=== PATIENT | female | born 1970 | race Caucasian/White ===

== ENCOUNTER 2018-12-02 19:16 | Emergency (ER) | payer OTHER, SELFPAY ==
[2018-12-02 19:20] VITALS: BP 123/61; PULSE 72; RESP 17; TEMP 37.1; O2SAT 100; BMI 21.2
--- NOTE | 2018-12-02 19:41 | ED_ITS ---
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 She states she had a sudden onset of right-sided lower back pain. Has never had any symptoms like this before. No radiation. No urinary symptoms. No bowel changes. No skin changes. Related Data Previous Rx's Medication Instructions Recorded cyclobenzaprine 10 mg PO TID PRN #21 tab 12/02/18 tramadol [Ultram] 50 mg PO Q6H PRN #20 tab 12/02/18 Allergies Allergy/AdvReac Type Severity Reaction Status Date / Time No Known Drug Allergies Allergy Verified 12/02/18 19:28 Review of Systems Constitutional Denies fever(s) and Denies headache(s) ENT Ears, Nose, Mouth, and Throat: Denies vertigo and Denies headache(s) Cardiovascular Denies chest pain and Denies dyspnea Respiratory Denies dyspnea Gastrointestinal Gastrointestinal: Denies abdominal pain, Denies nausea and Denies vomiting Genitourinary Denies urinary frequency, Denies dysuria and Denies urinary urgency Musculoskeletal Reports back pain, Denies numbness and Denies tingling Integumentary/Breasts Denies rash Neurologic Denies vertigo, Denies headache(s), Denies numbness and Denies tingling Hematologic/Lymphatic Denies easy bleeding and Denies easy bruising Allergic/Immunologic Denies urticaria [facility] Medical History Healthy adult (Acute) Social History Smoking Status: Current every day smoker Social History Smoking Status: Current every day smoker Exam Initial Vital Signs Initial Vital Signs: Vital Signs Temperature 98.8 F 12/02/18 19:20 Pulse Rate 72 12/02/18 19:20 Respiratory Rate 17 12/02/18 19:20 Blood Pressure 123/61 12/02/18 19:20 Pulse Oximetry 100 12/02/18 19:20 Const General: cooperative, well developed, well groomed and No acute distress Orientation: alert, awake and oriented x3 HENMT Head: normal to inspection and normocephalic Resp Effort & Inspection: normal respiratory effort Auscultation: clear to auscultation bilaterally Cardio Rate: regular rate Rhythm: regular rhythm GI Inspection: non-distended Palpation: soft Back/Spine/Pelvis Back: No CVA tenderness Skin Lesions: no lesions Rashes: no rashes Neuro General: alert, awake and oriented x3 Cognition: normal cognition Speech: speech normal Extrem General: normal to inspection and capillary refill normal Psych Appearance: grossly normal and well kempt Course Orders Ordered: Discontinued Medications Cyclobenzaprine HCl (Flexeril) 10 mg PO NOW ONE Stop: 12/02/18 19:53 Last Admin: 12/02/18 19:55 Dose: 10 mg Vital Signs - 8 hr 12/02/18 19:20 12/02/18 20:27 Temperature 98.8 F Pulse Rate 72 72 Respiratory Rate 17 18 Blood Pressure 123/61 112/61 Pulse Oximetry 100 MDM - Back Pain/Injury MDM Narrative Medical decision making narrative: Patient has no symptoms consistent with fracture or cauda equina or metastasis. No trauma. Hold on further workup for now. Patient given return precautions and follow-up instructions. She expressed understanding and agreement with plan Discharge Plan Departure Patient Disposition: Home Clinical Impression: Strain of lumbar region Qualifiers: Encounter type: initial encounter Qualified Code(s): S39.012A - Strain of muscle, fascia and tendon of lower back, initial encounter Discharge Date/Time: 12/02/18 20:28 Interventions: ED Discharge Assessment Last Done: 12/02/18 20:27 Instructions: DI for Back Spasm Activity Restrictions/Additional Instructions: Take the medication as directed. All of these medicines can make you drowsy so no driving. Contact your primary care provider for follow-up. Return to the emergency department for any new or worsening symptoms Prescriptions: New cyclobenzaprine 10 mg tablet 10 mg PO TID PRN (Reason: muscle spasm) Qty: 21 RF: 0 tramadol [Ultram] 50 mg tablet 50 mg PO Q6H PRN (Reason: pain) Qty: 20 RF: 0 Stand Alone Forms: Work Release Note
[2018-12-02] MEDS: CYCLOBENZAPRINE 10 MG TABLET PO (19:55)
[2018-12-02 20:27] VITALS: BP 112/61; PULSE 72; RESP 18
== END 2018-12-02 20:28 | disposition home or self-care (01) ==
PROVIDERS: Emergency Provider Emergency Medicine
DX: S39.012A Strain of muscle, fascia and tendon of lower back, initial encounter (principal)
CPT/HCPCS: 99282; 99283

== ENCOUNTER → 2018-12-07 06:43 | Outpatient (CLI) | payer OTHER, SELFPAY ==
--- NOTE | 2018-12-07 06:44 | DI.MRI.S_ITS ---
PROCEDURE: MR LUMBAR SPINE WO CON INDICATIONS: Strain of muscle, fascia and tendon of lower back TECHNIQUE: Noncontrast sagittal T1 spin echo and T2 fast echo, sagittal STIR, axial T1 and T2 fast spin echo through the lumbar spine. In cases with scoliosis, additional coronal T2 fast spin echo may be performed. COMPARISON: None. FINDINGS: Image quality: Excellent. Alignment and Curvature: There is normal bony alignment. Bone Marrow: Marrow is of normal overall signal. No acute vertebral body compression fractures. Spinal Cord: Conus medullaris terminates at the L1 level. Visualized cord demonstrates normal signal and size. Paraspinous Soft Tissues: No paravertebral masses. L1-L2: Normal appearance. L2-L3: Normal appearance. L3-L4: Normal appearance. L4-L5: Loss of the signal. Mild, diffuse disc bulge. Mild bilateral facet hypertrophy. Focal high intensity zone within the posterior annulus compatible with a fissure. Mild narrowing of the central canal. Mild bilateral neural foraminal narrowing. No neural impingement. L5-S1: Loss of the signal. Mild, diffuse disc bulge. Focal high intensity zone within the posterior annulus compatible with a fissure. Mild left facet hypertrophy. No central stenosis. Mild left neural foraminal narrowing. No neural impingement. IMPRESSION: 1. Mild L4-L5 and L5-S1 degenerative disc disease. 2. Mild bilateral L4-L5 and left L5-S1 facet arthropathy. 3. L4-L5 and L5-S1 disc annulus fissures. 4. Mild L4-L5 central canal narrowing. 5. Mild bilateral L4-L5 neural foraminal narrowing. Mild left L5-S1 neural foraminal narrowing. 6. No neural impingement. Dictated by: Ayde Gunn MD, PhD on 12/07/2018 at 8:10 Approved by: Ayde Gunn MD, PhD on 12/07/2018 at 8:12
== END ==
PROVIDERS: PCP Nurse Practitioner Family; Visit Provider Nurse Practitioner Family
DX: S39.012A Strain of muscle, fascia and tendon of lower back, initial encounter (principal); M51.36 Other intervertebral disc degeneration, lumbar region; M51.37 Other intervertebral disc degeneration, lumbosacral region; M48.061 Spinal stenosis, lumbar region without neurogenic claudication; M48.07 Spinal stenosis, lumbosacral region; M47.816 Spondylosis without myelopathy or radiculopathy, lumbar region; M47.817 Spondylosis without myelopathy or radiculopathy, lumbosacral region
CPT/HCPCS: 72148

== ENCOUNTER → 2018-12-25 09:09 | Outpatient (CLI) | payer OTHER, SELFPAY ==
--- NOTE | 2018-12-25 09:10 | DI.MG.S_ITS ---
BILATERAL DIGITAL DIAGNOSTIC MAMMOGRAM 3D/2D: 12/25/2018 CLINICAL: Baseline exam. Left breast pain. No prior exams were available for comparison. The tissue of both breasts is extremely dense, which lowers the sensitivity of mammography. No discrete abnormality to explain patient's symptoms. No significant masses, calcifications, or other findings are seen in either breast. IMPRESSION: INCOMPLETE: NEEDS ADDITIONAL IMAGING EVALUATION There is no abnormality seen in the left breast to correspond with the pain in the lateral aspect, however, ultrasound is recommended for complete evaluation, and particularly given dense breast tissue. This was performed immediately following this exam. This exam was interpreted at Station ID: [id number]. NOTE: For mammograms, a report in lay terms will be sent to the patient. Approximately 15% of breast malignancies will not be visualized mammographically. In the management of a palpable breast mass, a negative mammogram must not discourage biopsy of a clinically suspicious lesion. Electronically Signed By: Malinda shields/:12/25/2018 11:51:33 ACR BI-RADS Category 0: Incomplete [id number]
--- NOTE | 2018-12-25 09:10 | DI.US.S_ITS ---
LIMITED ULTRASOUND OF LEFT BREAST: 12/25/2018 CLINICAL: Diffuse left breast pain. left lateral breast pain and redness for a few days now resolved, mainly lower outer quadrant. Comparison is made to exam dated: 12/25/2018 [facility]. Color flow and real-time ultrasound of the left breast outer aspect were performed. Elliott scale images of the real-time examination were reviewed. Dense fibrocystic tissue present in the upper outer quadrant surrounding a 0.3 cm x 0.3 cm x 0.2 cm cyst in the left breast at 1 o'clock middle depth. There are also dilated duct in the left breast at 5 o'clock in the retroareolar region. This dilated duct displays internal echoes, debris or hemorrhage. Additionally, there is an anehoic dilated duct in the left breast at 6 o'clock in the retroareolar region. IMPRESSION: PROBABLY BENIGN The dilated duct in the left breast at 5 o'clock in the retroareolar region is consistent with debris and is probably benign. Follow-up mammogram and ultrasound in 6 months is recommended. The 0.3 cm x 0.3 cm x 0.2 cm cyst in the left breast at 1 o'clock middle depth is benign. The dilated duct in the left breast at 6 o'clock in the retroareolar region is benign. A follow-up left mammogram and an ultrasound in 6 months is recommended to demonstrate stability. Findings and recommendations were conveyed to the patient at time of exam. This exam was interpreted at Station ID: [id number]. Electronically Signed By: Malinda shields/:12/25/2018 13:51:47 letter sent: Followup Recommended Ultrasound BI-RADS: 3 Probably benign
== END ==
PROVIDERS: PCP Nurse Practitioner Family; Visit Provider Nurse Practitioner Family
DX: N64.4 Mastodynia (principal); R92.8 Other abnormal and inconclusive findings on diagnostic imaging of breast; N60.42 Mammary duct ectasia of left breast
CPT/HCPCS: 76642; 77066; G0279

== ENCOUNTER 2019-04-18 16:13 | Emergency (ER) | payer OTHER, SELFPAY ==
--- NOTE | 2019-04-18 16:26 | DI.RAD.S_ITS ---
PROCEDURE: XR CHEST 1V INDICATIONS: chest pain TECHNIQUE: One view of the chest was acquired. COMPARISON: None. FINDINGS: Surgical changes and devices: None. Lungs and pleura: Lungs are clear. No pleural effusions or pneumothorax. Mediastinum: Mediastinal contours appear normal. Heart size is normal. Bones and chest wall: No suspicious bony lesions. Overlying soft tissues appear unremarkable. IMPRESSION: No acute cardiopulmonary abnormality. Dictated by: Terence Vasquez M.D. on 04/18/2019 at 15:40 Approved by: Terence Vasquez M.D. on 04/18/2019 at 15:41
[2019-04-18 16:30] VITALS: BP 133/108; PULSE 103; RESP 18; O2SAT 96
[2019-04-18 16:32] VITALS: BP 133/108; PULSE 115; RESP 21; TEMP 37.1; O2SAT 100; BMI 21.7
[2019-04-18 16:36] LABS: Add Manual Diff / Slide Review NO; Basophils Absolute Auto 0 /uL (0-100); Basophils Percent Auto 0.9 % (0-2); Eosinophils Absolute Auto 0 /uL (0-450); Eosinophils Percent Auto 0.6 % (2-4); Hematocrit 36.3 % (36-46); Hemoglobin 12.2 g/dL (12.0-16.0); Lymphocytes Absolute Auto 2800 /uL (1100-4500); Lymphocytes Percent Auto 49.4 % (25-40); Mean Corpuscular HGB Conc 33.7 % (30-36); Mean Corpuscular Hemoglobin 25.7 PG (26-34); Mean Corpuscular Volume 76.2 fL (80-100); Monocytes Absolute Auto 700 /uL (0-900); Monocytes Percent Auto 12.4 % (3-14); Neutrophils Absolute Auto 2100 /uL (1500-7000); Neutrophils Percent Auto 36.7 % (50-75); Platelet Count 215 X10^3/uL (150-400); Red Blood Cell Count 4.76 X10^6/uL (4.0-5.2); Red Cell Distribution Width 14.7 % (11.6-14.8); White Blood Cell Count 5.6 X10^3/uL (4.5-11.0)
[2019-04-18 16:47] LABS: Alanine Aminotransferase 37 IU/L (9-52); Albumin 4.2 g/dL (3.5-5.0); Albumin Globulin Ratio 1.4 (1.0-2.8); Alkaline Phosphatase 95 U/L (38-126); Aspartate Aminotransferase 35 IU/L (14-36); BUN Creatinine Ratio 28.3 (6-22); Bilirubin Total 0.4 mg/dL (0.2-1.3); Blood Urea Nitrogen 17 mg/dL (7-17); Calcium 9.6 mg/dL (8.4-10.2); Carbon Dioxide 25 mmol/L (22-32); Chloride 105 mmol/L (98-107); Creatine Kinase 37 U/L (30-135); Estimated Glomerular Filt Rate > 60.0 mL/min (>60); Glucose 112 mg/dL (70-100); HEMOLYSIS < 15 (0-50); Lipase 158 U/L (23-300); Potassium 3.4 mmol/L (3.4-5.1); Sodium 141 mmol/L (137-145); Total Protein 7.2 g/dL (6.3-8.2)
[2019-04-18 16:49] LABS: PTT Partial Thromboplastin Tim 34 SECONDS (26.4-36.2)
[2019-04-18 16:56] LABS: D Dimer < 200 ng/mL (<230)
[2019-04-18 16:58] LABS: Troponin I < 0.012 ng/mL (0.01-0.034)
[2019-04-18 17:00] VITALS: BP 134/104; PULSE 96; RESP 15; O2SAT 99
--- NOTE | 2019-04-18 17:11 | ED_ITS ---
HPI - Chest Pain General Chief Complaint: Chest Pain Stated Complaint: states chest pressure and sob Time Seen by Provider: 04/18/19 16:26 Source: patient Mode of arrival: Ambulatory Limitations: no limitations History of Present Illness HPI narrative: Patient comes emergency department complaining of chest pressure and dyspnea on exertion for the last 3 days. Patient denies any fevers or chills. she states she has had a cough for about the last 2 weeks, which is new. She denies any sputum production. She states she is a smoker. Patient denies any calf pain or lower extremity swelling currently, though she did note some left calf pain last week. This has since resolved. Patient denies any nausea vomiting. She has no history of DVT. She states she has spontaneously lost 15 lb in the last couple of months, and states that she has not changed her diet or her exercise routine. No abdominal pain. No other complaints at this time. Related Data Home Medications Medication Instructions Recorded Confirmed ibuprofen 200 mg tablet 600 mg PO BID PRN tab 12/03/18 01/29/19 Allergies Allergy/AdvReac Type Severity Reaction Status Date / Time No Known Drug Allergies Allergy Verified 01/29/19 16:26 Review of Systems Constitutional Constitutional: Denies chills, Denies fatigue, Denies fever(s), Denies frequent falls, Denies lethargy and Denies weakness Eyes Eyes: Denies change in vision, Denies eye discharge, Denies irritation and Denies loss of vision ENT Ears, Nose, Mouth, and Throat: Denies change in voice, Denies dizziness, Denies neck pain, Denies sore throat and Denies throat swelling Cardiovascular Cardiovascular: Denies chest pain, Denies irregular heart rhythm, Denies lightheadedness, Denies palpitations, Reports dyspnea and Denies orthopnea Respiratory Respiratory: Reports cough, Reports dyspnea and Denies wheezing Gastrointestinal Gastrointestinal: Denies abdominal pain, Denies change in bowel habits, Denies diarrhea, Denies nausea and Denies vomiting Genitourinary Genitourinary: Denies hematuria, Denies flank pain, Denies urinary incontinence and Denies urinary urgency Musculoskeletal Musculoskeletal: Denies back pain, Denies muscle weakness, Denies neck pain, Denies numbness and Denies tingling Integumentary/Breasts Skin/Breast: Denies pruritus, Denies erythema, Denies rash and Denies wounds Neurologic Neurologic: Denies behavioral changes, Denies confusion, Denies dizziness, Denies frequent falls, Denies loss of vision, Denies numbness, Denies tingling and Denies weakness Psychiatric Psychiatric: Denies anxiety, Denies behavioral changes, Denies confusion, Denies depression, Denies homicidal ideation and Denies suicidal ideation Endocrine Endocrine: Denies fatigue, Denies flushing and Denies palpitations Hematologic/Lymphatic Hematologic/Lymphatic: Denies easy bruising Allergic/Immunologic Allergic/Immunologic: Denies urticaria, Denies throat swelling and Denies wheezing Patient History Medical History (Updated 04/18/19 @ 18:27 by Natasha Perez MD) Chronic back pain (Chronic) Family history of discoid lupus (Chronic) Healthy adult (Acute) Social History Smoking Status: Current every day smoker Tobacco: How many years used: 20 quit status: not considering quitting second hand exposure: No alcohol intake: current (rare) substance use type: does not use Social History Smoking Status: Current every day smoker Tobacco: How many years used: 20 quit status: not considering quitting second hand exposure: No alcohol intake: current (rare) substance use type: does not use alcohol intake frequency: holidays/special occasions only Substance Use Type: does not use Exam Initial Vital Signs Initial Vital Signs: Vital Signs Pulse Rate 103 H 04/18/19 16:30 Respiratory Rate 18 04/18/19 16:30 Blood Pressure 133/108 H 04/18/19 16:30 Pulse Oximetry 96 04/18/19 16:30 Const General: cooperative and well developed Nutritional Appearance: well nourished Orientation: alert, awake, oriented x3 and not confused [facility] Head: normocephalic and atraumatic Ears: external ears normal Nose: external nose normal and No nasal discharge Face and sinus: face symmetric and No dry mucous membranes Mouth: oral mucosae normal and moist mucous membranes Teeth and gingiva: dentition normal Eyes General: appearance normal, both eyes and all related structures Eyelids: eyelids normal Conjunctivae: conjunctivae normal Sclera: sclerae normal Pupils: PERRL EOM: EOM intact bilaterally Neck Neck: normal visual inspection, trachea midline, No lymphadenopathy, No midline deformity and No JVD Lymphatic: No lymphedema Chest Chest: normal inspection of the chest Resp Effort & Inspection: normal respiratory effort, able to speak in complete sentences, no respiratory distress and no use of accessory muscles Auscultation: clear to auscultation bilaterally, no rales, no rhonchi and no wheezes Cardio Rate: tachycardic Rhythm: regular rhythm Heart Sounds: no click, no gallops, murmur (2/6 systolic) and no rubs Pulses: normal peripheral pulses GI Inspection: non-distended Palpation: soft, no hepatosplenomegaly, No guarding, No pulsatile mass and No tender Auscultation: normal bowel sounds Back/Spine/Pelvis Back: No CVA tenderness Cervical Spine: cervical ROM normal and No pain with cervical ROM Thoracic/Lumbar Spine: thoracic and lumbar spine normal to inspection Skin General: no rashes or lesions noted, No jaundice and No petechiae Neuro General: alert, oriented x3, gait normal and no focal motor deficits Speech: speech normal Extrem General: full ROM, no clubbing, cyanosis or edema, no pedal edema and no calf tenderness Psych Appearance: well kempt Mental Status: mental status grossly normal Attitude: cooperative Thought Content: normal and suicidality Judgment: judgment good Course Course Course Narrative: Patient was found to have heart rate in rhythm consistent with sinus tachycardia in the 110s, and I felt she should be worked up for her tachycardia, chest discomfort, and dyspnea. He initial labs were unremarkable, including normal D-dimer, but given the patient's suggestive symptoms and negative chest x-ray, I felt the patient should have the CTA of the chest. This was done and found to be negative. The patient's heart rate was found to have normalized on re-evaluation. The patient had received some IV fluid in the emergency department, which I felt likely had contributed to the improvement. However, the patient had logged multiple episodes of tachycardia from the 110s to 120s over the last several days, and I felt that she should follow up to discuss with her primary care physician possibility of wearing an event monitor. She also needs to follow up to address the 15 lb weight loss that she has sustained in the last 2 months. We have discussed that the Red Bull and coffee that the patient is drinking on a nearly daily basis should be avoided in the setting of cardiac dysrhythmia. A TSH had been added on prior to the patient's discharge, at the request of patient's significant other, who is a physician. I had stated to the patient that I would inform her of the results if abnormal. The TSH was found to be undetectable. As such, the patient was called with the results, and this should also be taken into consideration the patient sees her primary care physician this week. I have added free T3 and T4, as well, and these are pending at this time. Orders Ordered: ED Orders 04/18/19 16:20 EKG-12 Lead Routine 04/18/19 16:26 XR chest 1V Stat 04/18/19 16:30 Complete Blood Count AUTO DIFF Stat Comprehensive Metabolic Panel Stat D Dimer Stat Lipase Stat Partial Thromboplastin Time Stat Prothrombin Time INR Stat Troponin & CK Cardiac Panel Stat 04/18/19 17:14 CT angio chest PE protocol Stat 04/18/19 18:52 Thyroid Stimulating Hormone Stat Discontinued Medications Sodium Chloride (Normal Saline 0.9%) 1,000 mls @ 1,000 mls/hr IV BOLUS ONE Stop: 04/18/19 17:59 Last Infusion: 04/18/19 18:47 Dose: 0 mls/hr Documented by: Admin: 04/18/19 18:06 Dose: 1,000 mls/hr Documented by: CLAY Ketorolac Tromethamine (Toradol) 30 mg IV NOW ONE Stop: 04/18/19 17:15 Last Admin: 04/18/19 18:03 Dose: 30 mg Documented by: CLAY Vital Signs Vital signs: Vital Signs - 8 hr 04/18/19 16:30 04/18/19 16:32 04/18/19 17:00 Temperature 98.7 F Pulse Rate 103 H 115 H 96 H Respiratory Rate 18 21 15 Blood Pressure 133/108 H Blood Pressure [Right Arm] 133/108 H 134/104 H Pulse Oximetry 96 100 99 04/18/19 18:19 04/18/19 18:36 04/18/19 18:39 Temperature Pulse Rate 82 82 77 Respiratory Rate 16 22 Blood Pressure Blood Pressure [Right Arm] 121/59 L 97/61 99/58 L Pulse Oximetry 100 99 100 MDM - Chest Pain Medical Records Data Attestation: I reviewed the patient's medical records. Lab Data Attestation: I reviewed the patient's lab results. Result diagrams: 04/18/19 16:30 10/20/19 16:30 Labs: Lab Results 04/18/19 04/18/19 04/18/19 Range/Units 16:30 16:30 16:30 WBC 5.6 (4.5-11.0) X10^3/uL RBC 4.76 (4.0-5.2) X10^6/uL Hgb 12.2 (12.0-16.0) g/dL Hct 36.3 (36-46) % MCV 76.2 L (80-100) fL MCH 25.7 L (26-34) PG MCHC 33.7 (30-36) % RDW 14.7 (11.6-14.8) % Plt Count 215 (150-400) X10^3/uL Neut % (Auto) 36.7 L (50-75) % Lymph % (Auto) 49.4 H (25-40) % Trinity % (Auto) 12.4 (3-14) % Eos % (Auto) 0.6 L (2-4) % Baso % (Auto) 0.9 (0-2) % Neut # (Auto) 2100 (7970-5025) /uL Lymph # (Auto) 2800 (8220-9527) /uL Trinity # (Auto) 700 (0-900) /uL Eos # (Auto) 0 (0-450) /uL Baso # (Auto) 0 (0-100) /uL PT 11.0 (10.1-12.7) SECONDS INR 1.0 (0.9-1.3) APTT 34 (26.4-36.2) SECONDS D-Dimer (<230) ng/mL Sodium 141 (137-145) mmol/L Potassium 3.4 (3.4-5.1) mmol/L Chloride 105 (98-107) mmol/L Carbon Dioxide 25 (22-32) mmol/L BUN 17 (7-17) mg/dL Creatinine 0.60 (0.52-1.04) mg/dL Estimated GFR > 60.0 (>60) mL/min BUN/Creatinine Ratio 28.3 H (6-22) Glucose 112 H (70-100) mg/dL Calcium 9.6 (8.4-10.2) mg/dL Total Bilirubin 0.4 (0.2-1.3) mg/dL AST 35 (14-36) IU/L ALT 37 (9-52) IU/L Alkaline Phosphatase 95 (38-126) U/L Total Creatine Kinase 37 (30-135) U/L CK-MB (CK-2) TNP CK-MB (CK-2) Rel Index TNP Troponin I < 0.012 (0.01-0.034) ng/mL Total Protein 7.2 (6.3-8.2) g/dL Albumin 4.2 (3.5-5.0) g/dL Globulin 3.0 (1.7-4.1) g/dL Albumin/Globulin Ratio 1.4 (1.0-2.8) Lipase 158 (23-300) U/L TSH (0.47-4.68) uIU/mL 04/18/19 04/18/19 Range/Units 16:30 18:52 WBC (4.5-11.0) X10^3/uL RBC (4.0-5.2) X10^6/uL Hgb (12.0-16.0) g/dL Hct (36-46) % MCV (80-100) fL MCH (26-34) PG MCHC (30-36) % RDW (11.6-14.8) % Plt Count (150-400) X10^3/uL Neut % (Auto) (50-75) % Lymph % (Auto) (25-40) % Trinity % (Auto) (3-14) % Eos % (Auto) (2-4) % Baso % (Auto) (0-2) % Neut # (Auto) (0835-6032) /uL Lymph # (Auto) (9656-9138) /uL Trinity # (Auto) (0-900) /uL Eos # (Auto) (0-450) /uL Baso # (Auto) (0-100) /uL PT (10.1-12.7) SECONDS INR (0.9-1.3) APTT (26.4-36.2) SECONDS D-Dimer < 200 (<230) ng/mL Sodium (137-145) mmol/L Potassium (3.4-5.1) mmol/L Chloride (98-107) mmol/L Carbon Dioxide (22-32) mmol/L BUN (7-17) mg/dL Creatinine (0.52-1.04) mg/dL Estimated GFR (>60) mL/min BUN/Creatinine Ratio (6-22) Glucose (70-100) mg/dL Calcium (8.4-10.2) mg/dL Total Bilirubin (0.2-1.3) mg/dL AST (14-36) IU/L ALT (9-52) IU/L Alkaline Phosphatase (38-126) U/L Total Creatine Kinase (30-135) U/L CK-MB (CK-2) CK-MB (CK-2) Rel Index Troponin I (0.01-0.034) ng/mL Total Protein (6.3-8.2) g/dL Albumin (3.5-5.0) g/dL Globulin (1.7-4.1) g/dL Albumin/Globulin Ratio (1.0-2.8) Lipase (23-300) U/L TSH < 0.02 L (0.47-4.68) uIU/mL Imaging Data Chest x-ray: Radiologist's impression: PROCEDURE: XR CHEST 1V INDICATIONS: chest pain TECHNIQUE: One view of the chest was acquired. COMPARISON: None. FINDINGS: Surgical changes and devices: None. Lungs and pleura: Lungs are clear. No pleural effusions or pneumothorax. Mediastinum: Mediastinal contours appear normal. Heart size is normal. Bones and chest wall: No suspicious bony lesions. Overlying soft tissues appear unremarkable. IMPRESSION: No acute cardiopulmonary abnormality. Dictated by: Terence Vasquez M.D. on 04/18/2019 at 15:40 Approved by: Terence Vasquez M.D. on 04/18/2019 at 15:41 CT scan - chest: Radiologist's impression: PROCEDURE: CT ANGIO CHEST PE PROTOCOL INDICATIONS: chest pain, dyspnea, tachycardia, negative CXR TECHNIQUE: After the administration of intravenous contrast, 2 mm thick sections acquired from the pulmonary apices to the posterior costophrenic angles. 3-dimensional maximum intensity projection (MIP) coronal and sagittal reformats were then acquired through the thorax. For radiation dose reduction, the following was used: automated exposure control, adjustment of mA and/or kV according to patient size. COMPARISON: None. FINDINGS: Image quality: Excellent. Pulmonary arteries: Pulmonary arteries are normal in size, and demonstrate no intraluminal filling defects to suggest central pulmonary embolism. Lungs and pleura: Lungs are clear. No pleural effusions or pneumothorax. Central and peripheral airways are patent. Mediastinum: Heart size is normal, without pericardial effusion. No mediastinal or hilar adenopathy. Thoracic aorta is normal in caliber and enhancement. Esophagus is normal in caliber, without hiatal hernia. Bones and chest wall: No suspicious bony lesions. Ribs and thoracic spine appear intact throughout. Thyroid gland unremarkable. No axillary or supraclavicular adenopathy. Abdomen: Visualized upper abdominal solid organs appear normal in the early arterial phase of enhancement. IMPRESSION: No pulmonary embolus. Dictated by: Terence Vasquez M.D. on 04/18/2019 at 17:06 Approved by: Terence Vasquez M.D. on 04/18/2019 at 17:11 ECG Data Attestation: I personally reviewed and interpreted this ECG as follows: (See below) Interpretation: Twelve lead EKG performed April 18, 2019, at 1620 as follows: Regular ventricular rhythm with a rate of 110 beats per minute WV interval 126 millisecond QRS duration 86 millisecond QTC interval 396 millisecond No ectopy No significant ST T wave changes Interpretation: Sinus tachycardia; no signs of acute ischemia; abnormal rhythm EKG as interpreted by ED MD Discharge Plan Departure Patient Disposition: Home Clinical Impression: Acute dyspnea Chest pain Qualifiers: Chest pain type: pleurodynia Qualified Code(s): R07.81 - Pleurodynia Discharge Date/Time: 04/18/19 18:49 Instructions: DI for Chest Pain Activity Restrictions/Additional Instructions: Extensive testing today looks good. Your white blood cell count is normal, and your chest x-ray looks good. The CT scan of your chest with contrast shows no evidence of a blood clot. Your heart rate has come down nicely with fluids, and your oxygen saturation looks good. Please follow up with your primary care physician regarding the unintentional 15 lb weight loss you had over the last couple of months. No reason for this has been found on today's workup. Please be sure to drink plenty of water. If you develop fevers or severe shortness of breath, please return to the emergency department. Prescriptions: No Action ibuprofen 200 mg tablet 600 mg PO BID PRNRF: 0 Referrals: Christie Escobedo ARNP [Primary Care Provider] -
--- NOTE | 2019-04-18 17:14 | DI.CT.S_ITS ---
PROCEDURE: CT ANGIO CHEST PE PROTOCOL INDICATIONS: chest pain, dyspnea, tachycardia, negative CXR TECHNIQUE: After the administration of intravenous contrast, 2 mm thick sections acquired from the pulmonary apices to the posterior costophrenic angles. 3-dimensional maximum intensity projection (MIP) coronal and sagittal reformats were then acquired through the thorax. For radiation dose reduction, the following was used: automated exposure control, adjustment of mA and/or kV according to patient size. COMPARISON: None. FINDINGS: Image quality: Excellent. Pulmonary arteries: Pulmonary arteries are normal in size, and demonstrate no intraluminal filling defects to suggest central pulmonary embolism. Lungs and pleura: Lungs are clear. No pleural effusions or pneumothorax. Central and peripheral airways are patent. Mediastinum: Heart size is normal, without pericardial effusion. No mediastinal or hilar adenopathy. Thoracic aorta is normal in caliber and enhancement. Esophagus is normal in caliber, without hiatal hernia. Bones and chest wall: No suspicious bony lesions. Ribs and thoracic spine appear intact throughout. Thyroid gland unremarkable. No axillary or supraclavicular adenopathy. Abdomen: Visualized upper abdominal solid organs appear normal in the early arterial phase of enhancement. IMPRESSION: No pulmonary embolus. Dictated by: Terence Vasquez M.D. on 04/18/2019 at 17:06 Approved by: Terence Vasquze M.D. on 04/18/2019 at 17:11
[2019-04-18] MEDS: KETOROLAC 60 MG/2 ML VIAL 30 MG IV (18:03)
[2019-04-18] MEDS: SODIUM CHLORIDE 0.9% 1,000 ML 1000 ML IV (18:06)
[2019-04-18 18:19] VITALS: BP 121/59; PULSE 82; O2SAT 100
[2019-04-18 18:36] VITALS: BP 97/61; PULSE 82; RESP 16; O2SAT 99
[2019-04-18 18:39] VITALS: BP 99/58; PULSE 77; RESP 22; O2SAT 100
[2019-04-18 19:31] LABS: Thyroid Stimulating Hormone < 0.02 uIU/mL (0.47-4.68)
--- NOTE | 2019-04-18 20:14 | PC.NURSE ---
Called patient to tell her about TSH result of < 0.02. Discussed as marker of hyperthyroid. T3/T4 pending and will be available in the am. Encouraged to call Gregg in the am and follow up per their recommendation. Encouraged to return for any concerns / worsening of symptoms.
[2019-04-18 20:15] LABS: Free T4, Direct Thyroxine 5.17 ng/dL (0.78-2.19)
== END 2019-04-18 18:49 | disposition home or self-care (01) ==
PROVIDERS: Emergency Provider Emergency Medicine; PCP Nurse Practitioner Family
DX: R06.00 Dyspnea, unspecified (principal); R07.81 Pleurodynia; R05 Cough; M79.662 Pain in left lower leg; R00.0 Tachycardia, unspecified; R07.9 Chest pain, unspecified
CPT/HCPCS: 36415; 71045; 71275; 80053; 82550; 83690; 84436; 84439; 84443; 84481; 84484; 85025; 85379; 85610; 85730; 93005; 96361; 96374; 99283; 99285; J1885; Q9967

== ENCOUNTER → 2019-04-22 15:32 | Outpatient (CLI) | payer OTHER, SELFPAY ==
--- NOTE | 2019-04-22 15:33 | DI.US.S_ITS ---
PROCEDURE: US THYROID INDICATIONS: DECREASED TSH TECHNIQUE: Real-time scanning was performed of the thyroid gland, with image documentation. COMPARISON: None. FINDINGS: Right: Thyroid lobe measures 5.1 x 1.7 x 2.0 cm, and is homogeneous in echotexture. Left: Thyroid lobe measures 4.8 x 1.7 x 1.6 cm, and is homogenous in echotexture. Isthmus: 4 mm thick. IMPRESSION: No thyroid nodule identified. Dictated by: Juan Fleming M.D. on 04/22/2019 at 16:56 Approved by: Juan Fleming M.D. on 04/22/2019 at 16:58
== END ==
PROVIDERS: PCP Nurse Practitioner Family; Visit Provider Nurse Practitioner Family
DX: R79.89 Other specified abnormal findings of blood chemistry (principal); E05.90 Thyrotoxicosis, unspecified without thyrotoxic crisis or storm
CPT/HCPCS: 76536

== ENCOUNTER → 2019-05-18 10:51 | Outpatient (CLI) | payer OTHER, SELFPAY ==
[2019-05-18 11:56] LABS: Hematocrit 38.2 % (36-46); Hemoglobin 12.9 g/dL (12.0-16.0); Mean Corpuscular HGB Conc 33.7 % (30-36); Mean Corpuscular Hemoglobin 25.6 PG (26-34); Mean Corpuscular Volume 76.1 fL (80-100); Platelet Count 219 X10^3/uL (150-400); Red Blood Cell Count 5.02 X10^6/uL (4.0-5.2); Red Cell Distribution Width 14.9 % (11.6-14.8); White Blood Cell Count 4.9 X10^3/uL (4.5-11.0)
[2019-05-18 12:19] LABS: Alanine Aminotransferase 43 IU/L (<35); Albumin 4.3 g/dL (3.5-5.0); Albumin Globulin Ratio 1.4 (1.0-2.8); Alkaline Phosphatase 93 U/L (38-126); Aspartate Aminotransferase 47 IU/L (14-36); Bilirubin Total 0.6 mg/dL (0.2-1.3); Blood Urea Nitrogen 18 mg/dL (7-17); Calcium 10.2 mg/dL (8.4-10.2); Carbon Dioxide 28 mmol/L (22-32); Chloride 105 mmol/L (98-107); Cholesterol 108 mg/dL (140-199); Estimated Glomerular Filt Rate > 60.0 mL/min (>60); Globulin 3.1 g/dL (1.7-4.1); Glucose 107 mg/dL (70-100); HDL Cholesterol 36 mg/dL (40-60); HEMOLYSIS < 15 (0-50); LDL Cholesterol Calculated 58 mg/dL (<100); Sodium 142 mmol/L (137-145); Total Protein 7.4 g/dL (6.3-8.2); Triglycerides 68 mg/dL (35-150)
[2019-05-18 13:03] LABS: Vitamin B12 728 pg/mL (239-931)
[2019-05-18 13:53] LABS: TSH w/ Reflex to FT4 < 0.02 uIU/mL (0.47-4.68)
[2019-05-18 14:30] LABS: Free T4, Direct Thyroxine 6.34 ng/dL (0.78-2.19)
== END ==
PROVIDERS: PCP Nurse Practitioner Family; Visit Provider Nurse Practitioner Family
DX: Z13.6 Encounter for screening for cardiovascular disorders (principal); R53.83 Other fatigue
CPT/HCPCS: 36415; 80053; 80061; 82607; 84439; 84443; 85027

== ENCOUNTER 2019-05-20 10:52 | Emergency (ER) | payer OTHER, SELFPAY ==
[2019-05-20 10:55] VITALS: BP 114/61; PULSE 98; RESP 18; TEMP 36.6; O2SAT 98; BMI 19.3
--- NOTE | 2019-05-20 12:20 | ED.RECABL ---
HPI - Recheck/Abnormal Lab/Rx <Meera Shaw PA-C - Last Filed: 05/20/19 19:01> General Chief Complaint: Recheck/Abnormal Lab/Rx Stated Complaint: thyroid, light headed Time Seen by Provider: 05/20/19 12:06 Source: patient Mode of arrival: Ambulatory Limitations: no limitations History of Present Illness HPI narrative: This 48-year-old female states she was sent by PCP today for ongoing symptoms associated with hyperthyroidism. She states that she does have a referral to endocrinology pending. She has been taking methimazole as prescribed. She states that she had been using propanolol only once daily, had not taken any today, but did just see her PCP and advised to increase to q.i.d. she has not tried taking it on a regular basis get. She states that she has had continued weight loss and tremulousness as well as low energy and frequently feeling foggy, where there can be ?pieces missing?. She states she thinks symptoms have even been worse in the last week but she denies any acute change today. She states she always feels warm and generally weak, for example recently went to run and she could only manage a like dog and felt terrible. She does not and did not have any chest pain or dyspnea and states that her breathing is normal. She has not noted any new pain or swelling in her extremities. She states that she had some abdominal pain around her belly button that radiated downwards last night that resolved on its own. She denies any urinary symptoms. She continues to have more frequent bowel movements, unchanged since diagnosis Related Data Home Medications Medication Instructions Recorded Confirmed ibuprofen 200 mg tablet 600 mg PO BID PRN tab 12/03/18 05/20/19 Previous Rx's Medication Instructions Recorded methimazole 10 mg tablet 10 mg PO TID #90 tab 05/19/19 propranolol 20 mg tablet 20 mg PO TID PRN #90 tab 05/19/19 Allergies Allergy/AdvReac Type Severity Reaction Status Date / Time No Known Drug Allergies Allergy Verified 05/20/19 11:05 Review of Systems <Meera Shaw PA-C - Last Filed: 05/20/19 19:01> Review of Systems ROS Unobtainable: All systems reviewed & are unremarkable except as noted in HPI and below Patient History <Meera Shaw PA-C - Last Filed: 05/20/19 19:01> Medical History Chronic back pain (Chronic) Family history of discoid lupus (Chronic) Healthy adult (Acute) Hyperthyroidism (Acute 04/18/19) Social History Smoking Status: Current every day smoker Tobacco: How many years used: 20 quit status: not considering quitting second hand exposure: No alcohol intake: current (rare) substance use type: does not use alcohol intake frequency: holidays/special occasions only Substance Use Type: does not use Exam <Meera Shaw PA-C - Last Filed: 05/20/19 19:01> Narrative Exam Narrative: GENERAL APPEARANCE: Patient sitting comfortably, in no distress. NECK/THYROID: Neck supple, no masses or thyromegaly LUNGS: Clear to auscultation bilaterally. No cough on exam HEART: Regular rate and rhythm without murmur, normal S1, S2, no S3 or S4. ABDOMEN: Soft, NT, ND, + BS x 4 quadrants EXTREMITIES: No cyanosis or edema. No calf tenderness NEUROLOGIC: Alert and oriented, normal speech, and coordination. No tremor noted DERMATOLOGIC: No exanthem Initial Vital Signs Initial Vital Signs: Vital Signs Temperature 97.8 F 05/20/19 10:55 Pulse Rate 98 H 05/20/19 10:55 Respiratory Rate 18 05/20/19 10:55 Blood Pressure 114/61 05/20/19 10:55 Pulse Oximetry 98 05/20/19 10:55 <Nel Mackenzie DO - Last Filed: 05/21/19 07:33> Initial Vital Signs Initial Vital Signs: Vital Signs Temperature 97.8 F 05/20/19 10:55 Pulse Rate 98 H 05/20/19 10:55 Respiratory Rate 18 05/20/19 10:55 Blood Pressure 114/61 05/20/19 10:55 Pulse Oximetry 98 05/20/19 10:55 Course <Meera Shaw PA-C - Last Filed: 05/20/19 19:01> Course Additional Information: I spoke with patient's PCP ALEX Escobedo who was concerned about symptoms patient described on the phone but had not seen her today, wanted her to be evaluated. Reviewed no fever, tachycardia or arrhythmia. No evidence of heart failure or other signs of thyroid storm though she continues to have ongoing symptoms of hyperthyroidism. On the monitor here pulse rate 70s-80s and she states not feeling tremulous with propanolol given here. She agrees to continue this q.i.d. along with new methimazole dose and follow up with her [employer] while awaiting referral. Orders Ordered: Discontinued Medications Propranolol HCl (Inderal) 20 mg PO NOW ONE Stop: 05/20/19 12:45 Last Admin: 05/20/19 12:56 Dose: 20 mg Documented by: MEISENB Vital Signs Vital signs: Vital Signs - 8 hr 05/20/19 12:46 05/20/19 13:12 Pulse Rate 74 77 Respiratory Rate 23 26 H Blood Pressure [Right Arm] 109/67 105/62 Pulse Oximetry 99 99 <Nel Mackenzie DO - Last Filed: 05/21/19 07:33> Orders Ordered: Discontinued Medications Propranolol HCl (Inderal) 20 mg PO NOW ONE Stop: 05/20/19 12:45 Last Admin: 05/20/19 12:56 Dose: 20 mg Documented by: MEISENB Vital Signs Vital signs: Vital Signs - 8 hr 05/20/19 12:46 05/20/19 13:12 Pulse Rate 74 77 Respiratory Rate 23 26 H Blood Pressure [Right Arm] 109/67 105/62 Pulse Oximetry 99 99 Discharge Plan Departure Patient Disposition: Home Clinical Impression: Hyperthyroidism Discharge Date/Time: 05/20/19 13:59 Instructions: DI for Hyperthyroidism Activity Restrictions/Additional Instructions: I think that your symptoms are related to your hyper functioning thyroid gland, and hopefully the increase in your methimazole will start to help this soon, however for now you should be taking your propanolol 4 times daily as prescribed by nurse practitioner Gregg to help with the symptoms. I know that she is working on an endocrinology referral for you, but please set up a follow-up with her next week in the interim to see whether any additional adjustments need to be made in the interim. As we talked about, you should return here if you have acute changes such as shortness of breath, rapid heart rate like you had last month when you came here, high fever, etc. 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 Prescriptions: No Action methimazole 10 mg tablet 10 mg PO TID Qty: 90 RF: 0 propranolol 20 mg tablet 20 mg PO TID PRN (Reason: racing heartbeat) Qty: 90 RF: 0 ibuprofen 200 mg tablet 600 mg PO BID PRN (Reason: pain) RF: 0 Referrals: Christie Escobedo ARNP [Primary Care Provider] -
[2019-05-20 12:46] VITALS: BP 109/67; PULSE 74; RESP 23; O2SAT 99
[2019-05-20] MEDS: PROPRANOLOL 10 MG TABLET 20 MG PO (12:56)
[2019-05-20 13:12] VITALS: BP 105/62; PULSE 77; RESP 26; O2SAT 99
== END 2019-05-20 13:59 | disposition home or self-care (01) ==
PROVIDERS: Emergency Provider Internal Medicine; PCP Nurse Practitioner Family
DX: E05.90 Thyrotoxicosis, unspecified without thyrotoxic crisis or storm (principal)
CPT/HCPCS: 99282; 99283

== ENCOUNTER → 2019-08-17 16:21 | Outpatient (CLI) | payer OTHER, SELFPAY ==
[2019-08-17 17:02] LABS: Influenza A - CEPHEID Flu A POSITIVE (NEGATIVE); Influenza B - CEPHEID Flu B NEGATIVE (NEGATIVE)
== END ==
PROVIDERS: PCP Nurse Practitioner Family; Visit Provider Nurse Practitioner Family
DX: R68.89 Other general symptoms and signs (principal)
CPT/HCPCS: 87502

== ENCOUNTER → 2019-10-08 12:06 | Outpatient (CLI) | payer OTHER, SELFPAY ==
[2019-10-08 12:55] LABS: Alanine Aminotransferase 29 IU/L (<35); Albumin 4.2 g/dL (3.5-5.0); Albumin Globulin Ratio 1.2 (1.0-2.8); Alkaline Phosphatase 112 U/L (38-126); Aspartate Aminotransferase 41 IU/L (14-36); BUN Creatinine Ratio 25.5 (6-22); Bilirubin Total 0.4 mg/dL (0.2-1.3); Blood Urea Nitrogen 14 mg/dL (7-17); Calcium 10.1 mg/dL (8.4-10.2); Carbon Dioxide 26 mmol/L (22-32); Chloride 106 mmol/L (98-107); Estimated Glomerular Filt Rate > 60.0 mL/min (>60); Globulin 3.5 g/dL (1.7-4.1); Glucose 102 mg/dL (70-100); HEMOLYSIS < 15 (0-50); Potassium 4.3 mmol/L (3.4-5.1); Sodium 140 mmol/L (137-145); Total Protein 7.7 g/dL (6.3-8.2)
[2019-10-08 13:13] LABS: Free T3, Triiodothyronine Free > 22.80 pg/mL (2.77-5.27); Free T4, Direct Thyroxine 6.03 ng/dL (0.78-2.19)
[2019-10-08 13:26] LABS: Thyroid Stimulating Hormone < 0.02 uIU/mL (0.47-4.68)
[2019-10-08 14:08] LABS: Add Manual Diff / Slide Review NO; Basophils Absolute Auto 100 /uL (0-100); Basophils Percent Auto 1.1 % (0-2); Eosinophils Absolute Auto 0 /uL (0-450); Eosinophils Percent Auto 0.4 % (2-4); Hematocrit 37.6 % (36-46); Hemoglobin 12.6 g/dL (12.0-16.0); Lymphocytes Absolute Auto 3400 /uL (1100-4500); Lymphocytes Percent Auto 50.7 % (25-40); Mean Corpuscular HGB Conc 33.4 % (30-36); Mean Corpuscular Hemoglobin 25.4 PG (26-34); Mean Corpuscular Volume 76.1 fL (80-100); Monocytes Absolute Auto 700 /uL (0-900); Monocytes Percent Auto 10.4 % (3-14); Neutrophils Absolute Auto 2500 /uL (1500-7000); Neutrophils Percent Auto 37.4 % (50-75); Platelet Count 206 X10^3/uL (150-400); Red Blood Cell Count 4.94 X10^6/uL (4.0-5.2); Red Cell Distribution Width 15.6 % (11.6-14.8); White Blood Cell Count 6.7 X10^3/uL (4.5-11.0)
== END ==
PROVIDERS: PCP Nurse Practitioner Family; Referring Provider Nurse Practitioner Family; Visit Provider Nurse Practitioner Family
DX: E05.90 Thyrotoxicosis, unspecified without thyrotoxic crisis or storm (principal)
CPT/HCPCS: 36415; 80053; 84439; 84443; 84481; 85025

== ENCOUNTER → 2020-03-27 16:12 | Outpatient (CLI) | payer OTHER, SELFPAY ==
--- NOTE | 2020-03-27 16:34 | DI.RAD.S_ITS ---
PROCEDURE: XR CHEST 2V INDICATIONS: Cough, weight loss, h/o tobacco abuse TECHNIQUE: 2 views of the chest were acquired. COMPARISON: None. FINDINGS: Surgical changes and devices: None. Lungs and pleura: Lungs are clear. No pleural effusions or pneumothorax. Mediastinum: Mediastinal contours are normal. Heart size is normal. Bones and chest wall: No suspicious bony abnormalities. Soft tissues appear unremarkable. IMPRESSION: No acute cardiopulmonary process demonstrated radiographically. Dictated by: Emmett Evangelista M.D. on 03/27/2020 at 16:59 Approved by: Emmett Evangelista M.D. on 03/27/2020 at 17:00
[2020-03-29 09:12] LABS: COVID19 Sendout Not Detected (Not Detect)
== END ==
PROVIDERS: PCP Nurse Practitioner Family; Referring Provider Physician Assistant; Visit Provider Physician Assistant
DX: Z11.59 Encounter for screening for other viral diseases (principal); J02.9 Acute pharyngitis, unspecified; R05 Cough
CPT/HCPCS: 71046; 87070; 87635

== ENCOUNTER → 2020-04-06 12:20 | Outpatient (CLI) | payer OTHER, SELFPAY ==
[2020-04-06 12:57] LABS: Hematocrit 39.4 % (36-46); Hemoglobin 12.9 g/dL (12.0-16.0); Mean Corpuscular HGB Conc 32.7 % (30-36); Mean Corpuscular Hemoglobin 25.1 PG (26-34); Mean Corpuscular Volume 76.8 fL (80-100); Platelet Count 190 X10^3/uL (150-400); Red Blood Cell Count 5.13 X10^6/uL (4.0-5.2); Red Cell Distribution Width 15.1 % (11.6-14.8)
[2020-04-06 13:18] LABS: Alanine Aminotransferase 34 IU/L (<35); Albumin 4.1 g/dL (3.5-5.0); Albumin Globulin Ratio 1.1 (1.0-2.8); Alkaline Phosphatase 137 U/L (38-126); Aspartate Aminotransferase 40 IU/L (14-36); BUN Creatinine Ratio 37.9 (6-22); Bilirubin Total 0.6 mg/dL (0.2-1.3); Blood Urea Nitrogen 22 mg/dL (7-17); Calcium 9.6 mg/dL (8.4-10.2); Carbon Dioxide 28 mmol/L (22-32); Chloride 104 mmol/L (98-107); Estimated Glomerular Filt Rate > 60.0 mL/min (>60); Globulin 3.6 g/dL (1.7-4.1); Glucose 115 mg/dL (70-100); HEMOLYSIS < 15 (0-50); Potassium 3.9 mmol/L (3.4-5.1); Sodium 138 mmol/L (137-145); Total Protein 7.7 g/dL (6.3-8.2)
[2020-04-06 13:59] LABS: Free T4, Direct Thyroxine 6.06 ng/dL (0.78-2.19)
[2020-04-06 14:18] LABS: Thyroid Stimulating Hormone < 0.015 uIU/mL (0.47-4.68)
== END ==
PROVIDERS: PCP Nurse Practitioner Family; Referring Provider Nurse Practitioner Family; Visit Provider Nurse Practitioner Family
DX: Z00.00 Encounter for general adult medical examination without abnormal findings (principal); E05.90 Thyrotoxicosis, unspecified without thyrotoxic crisis or storm
CPT/HCPCS: 36415; 80053; 84439; 84443; 85027

== ENCOUNTER → 2020-04-07 11:09 | Outpatient (CLI) | payer OTHER, SELFPAY ==
--- NOTE | 2020-04-07 11:10 | DI.US.S_ITS ---
PROCEDURE: US SOFT TISSUE HEAD AND NECK INDICATIONS: lymphadenopathy, choking with liquid consumption TECHNIQUE: Real-time scanning was performed of the neck region of interest, with image documentation. COMPARISON: None. FINDINGS: The patient directed the sonographic evaluation to 2 discrete small right cervical neck lumps near the skin surface. These are ovoid, demarcated, and respectively measure 3 x 9 by 24 mm and 3 x 6 x 10 mm. By appearance they are likely superficial lymph nodes. IMPRESSION: Small presumably benign appearing lymph nodes, within the superficial soft tissues of the right neck corresponding to the area of patient's clinical concern. Continued clinical follow-up is recommended. Biopsy at this time is not recommended. Dictated by: Maxim Turner M.D. on 04/07/2020 at 12:14 Approved by: Maxim Turner M.D. on 04/07/2020 at 12:16
== END ==
PROVIDERS: PCP Nurse Practitioner Family; Referring Provider Nurse Practitioner Family; Visit Provider Nurse Practitioner Family
DX: R59.0 Localized enlarged lymph nodes (principal); E05.90 Thyrotoxicosis, unspecified without thyrotoxic crisis or storm; R49.9 Unspecified voice and resonance disorder; R71.8 Other abnormality of red blood cells; Z72.0 Tobacco use
CPT/HCPCS: 76536; 82728

== ENCOUNTER → 2020-04-07 16:28 | Outpatient (CLI) | payer OTHER, SELFPAY ==
[2020-04-07 17:37] LABS: Ferritin 272 ng/mL (11-264)
== END ==
PROVIDERS: PCP Nurse Practitioner Family; Visit Provider Nurse Practitioner Family
DX: R71.8 Other abnormality of red blood cells (principal)
CPT/HCPCS: 82728

== ENCOUNTER → 2023-07-31 12:02 | Outpatient (CLI) | payer OTHER, SELFPAY | PROVIDERS: PCP Family Medicine; Visit Provider Family Medicine | DX: R35.0 Frequency of micturition (principal); R31.9 Hematuria, unspecified; M25.559 Pain in unspecified hip | CPT/HCPCS: 87086 ==

== ENCOUNTER → 2023-07-31 12:47 | Outpatient (CLI) | payer OTHER, SELFPAY ==
--- NOTE | 2023-07-31 12:50 | DI.RAD.S_ITS ---
PROCEDURE: XR HIP W PEL IF DONE RT 2V INDICATIONS: hyperthyroidism TECHNIQUE: AP pelvis with lateral view(s) of the right hip(s). COMPARISON: None. FINDINGS: Bones: No fractures or dislocations. Mild bilateral hip DJD. Pelvic ring appears intact. No suspicious bony lesions. Degenerative change at the pubic symphysis. Soft tissues: The visualized bowel gas pattern is normal. No suspicious soft tissue calcifications. IMPRESSION: Mild bilateral hip DJD. Dictated by: Hollis Brown M.D. on 07/31/2023 at 17:21 Approved by: Hollis Brown M.D. on 07/31/2023 at 17:22
[2023-07-31 14:40] LABS: Add Manual Diff / Slide Review NO; Basophils Absolute Auto 100 /uL (0-100); Basophils Percent Auto 1.2 % (0-2); Eosinophils Absolute Auto 0 /uL (0-450); Eosinophils Percent Auto 0.5 % (2-4); Hematocrit 41.4 % (36-46); Hemoglobin 13.7 g/dL (12.0-16.0); Lymphocytes Absolute Auto 1600 /uL (1100-4500); Lymphocytes Percent Auto 34.7 % (25-40); Mean Corpuscular HGB Conc 33.1 % (30-36); Mean Corpuscular Hemoglobin 27.9 PG (26-34); Mean Corpuscular Volume 84.2 fL (80-100); Monocytes Absolute Auto 500 /uL (0-900); Monocytes Percent Auto 9.7 % (3-14); Neutrophils Absolute Auto 2500 /uL (1500-7000); Neutrophils Percent Auto 53.9 % (50-75); Platelet Count 263 X10^3/uL (150-400); Red Blood Cell Count 4.91 X10^6/uL (4.0-5.2); Red Cell Distribution Width 14.2 % (11.6-14.8); White Blood Cell Count 4.7 X10^3/uL (4.5-11.0)
[2023-07-31 14:44] LABS: Alanine Aminotransferase 19 IU/L (<35); Albumin 4.5 g/dL (3.5-5.0); Albumin Globulin Ratio 1.2 (1.0-2.8); Alkaline Phosphatase 85 U/L (38-126); Aspartate Aminotransferase 29 IU/L (14-36); BUN Creatinine Ratio 19.5 (6-22); Bilirubin Total 0.5 mg/dL (0.2-1.3); Blood Urea Nitrogen 17 mg/dL (7-17); Calcium 9.7 mg/dL (8.4-10.2); Carbon Dioxide 27 mmol/L (22-32); Chloride 100 mmol/L (98-107); Cholesterol 215 mg/dL (140-199); Estimated Glomerular Filt Rate > 60 mL/min (>60); Globulin 3.9 g/dL (1.7-4.1); Glucose 91 mg/dL (70-100); HDL Cholesterol 58 mg/dL (40-60); HEMOLYSIS < 15 (0-50); LDL Cholesterol Calculated 143 mg/dL (<100); Potassium 4.1 mmol/L (3.4-5.1); Sodium 137 mmol/L (137-145); Total Protein 8.4 g/dL (6.3-8.2); Triglycerides 70 mg/dL (35-150)
[2023-07-31 14:59] LABS: Free T4, Direct Thyroxine 1.89 ng/dL (0.78-2.19)
[2023-07-31 15:26] LABS: Thyroid Stimulating Hormone < 0.015 uIU/mL (0.47-4.68)
[2023-08-02 06:43] LABS: Thyroid Peroxidase Antibodies 77 IU/mL (0-34)
== END ==
PROVIDERS: PCP Family Medicine; Referring Provider Family Medicine; Visit Provider Family Medicine
DX: M16.0 Bilateral primary osteoarthritis of hip (principal); R31.9 Hematuria, unspecified; M25.559 Pain in unspecified hip
CPT/HCPCS: 36415; 73502; 80053; 80061; 84439; 84443; 84481; 85025; 86376; 87086

== ENCOUNTER → 2023-08-08 16:08 | Outpatient (CLI) | payer OTHER, SELFPAY ==
--- NOTE | 2023-08-08 | DI.MG.S_ITS ---
BILATERAL DIGITAL SCREENING MAMMOGRAM 3D/2D WITH CAD: 08/08/2023 CLINICAL: Routine screening. Family history of breast cancer. Comparison is made to exams dated: 12/25/2018 ultrasound and 12/25/2018 mammogram - [facility]. Both breasts are extremely dense, which lowers the sensitivity of mammography (category d />75% glandular tissue). Current study was also evaluated with a Computer Aided Detection (CAD) system. There is a new 0.8 cm oval equal density focal asymmetry in the left breast at 9 o'clock anterior depth. No other significant masses, calcifications, or other findings are seen in either breast. IMPRESSION: INCOMPLETE: NEEDS ADDITIONAL IMAGING EVALUATION The new 0.8 cm oval equal density focal asymmetry in the left breast is indeterminate. Additional views with possible ultrasound are recommended. Based on Tyrer-Cuzick model (a risk assessment model), the patient's lifetime risk is 21.3% and her 10 year risk is 6.1%. If a patient has an elevated risk, a more comprehensive evaluation should be considered and/or a referral to a genetic counselor. The [place] [employer], [place] [employer], and NCCN Guidelines advise the consideration of Breast MRI as an adjunct to screening mammography in patients whose Lifetime risk to develop breast cancer is 20% or higher. This exam was interpreted at Station ID: [id number]. NOTE: For mammograms, a report in lay terms will be sent to the patient. Approximately 15% of breast malignancies will not be visualized mammographically. In the management of a palpable breast mass, a negative mammogram must not discourage biopsy of a clinically suspicious lesion. Electronically Signed By: Massimo grimm/caprice:08/11/2023 07:19:38 letter sent: Additional Imaging Needed ACR BI-RADS Category 0: Incomplete 3340F
--- NOTE | 2023-08-08 | DI.US.S_ITS ---
PROCEDURE: US THYROID INDICATIONS: HYPERTHYROIDISM TECHNIQUE: Real-time scanning was performed of the thyroid gland, with image documentation. COMPARISON: [facility], US, US THYROID, 04/22/2019, 15:45. FINDINGS: Right: Thyroid lobe measures 4.6 x 1.6 x 1.8 cm, and is heterogeneous in echotexture. Left: Thyroid lobe measures 4.8 x 2.0 x 1.5 cm, and is heterogeneous in echotexture. Isthmus: 0.3 cm thick. IMPRESSION: Heterogeneous thyroid and no discrete nodule seen bilaterally. ACR TI-RADS definitions and recommendations: TI-RADS 1 (benign): 0 points. FNA not needed. TI-RADS 2 (not suspicious): 2 points. FNA not needed. TI-RADS 3 (mildly suspicious): 3 points. * FNA if 2.5 cm or larger, follow up if 1.5 cm or larger (at 1, 3, and 5 years). TI-RADS 4 (moderately suspicious): 4-6 points. * FNA if 1.5 cm or larger, follow up if 1 cm or larger (at 1, 2, 3, and 5 years). TI-RADS 5 (highly suspicious): 7 points or more. * FNA if 1 cm or larger, follow up if 0.5 cm or larger (every year for 5 years). Dictated by: Cedrick Trent [facility] Interpreted: Luiz Gaxiola MD on 08/08/2023 at 16:28 Transcribed by: MARY BETH on 08/08/2023 at 16:28 Approved by: Luiz Gaxiola M.D. on 08/08/2023 at 16:41
== END ==
LOC: US 16:08
PROVIDERS: PCP Family Medicine; Referring Provider Family Medicine; Visit Provider Family Medicine
DX: Z12.31 Encounter for screening mammogram for malignant neoplasm of breast (principal); Z80.3 Family history of malignant neoplasm of breast; R92.343 Mammographic extreme density, bilateral breasts; E05.90 Thyrotoxicosis, unspecified without thyrotoxic crisis or storm; R31.9 Hematuria, unspecified; M25.559 Pain in unspecified hip
CPT/HCPCS: 76536; 77063; 77067

== ENCOUNTER → 2023-08-20 10:30 | Outpatient (CLI) | payer OTHER, SELFPAY ==
[2023-08-20 11:48] LABS: HEMOLYSIS < 15 (0-50); Iron 106 ug/dL (37-170)
[2023-08-20 11:59] LABS: Percent Iron Saturation 30 % (15-50); Total Iron Binding Capacity 355 ug/dL (265-497); Transferrin 288 mg/dL (206-381)
[2023-08-20 12:00] LABS: Vitamin D 25 Hydroxy (D3) 57.2 ng/mL (30.0-100.0)
[2023-08-20 12:49] LABS: Vitamin B12 > 1000 pg/mL (239-931)
== END ==
PROVIDERS: PCP Family Medicine; Referring Provider Family Medicine; Visit Provider Family Medicine
DX: R13.10 Dysphagia, unspecified (principal); R59.0 Localized enlarged lymph nodes; R00.0 Tachycardia, unspecified; E05.90 Thyrotoxicosis, unspecified without thyrotoxic crisis or storm; L93.0 Discoid lupus erythematosus; R53.83 Other fatigue; Z72.0 Tobacco use
CPT/HCPCS: 36415; 82306; 82607; 82746; 83540; 83550

== ENCOUNTER → 2023-08-26 10:25 | Outpatient (CLI) | payer OTHER, SELFPAY ==
--- NOTE | 2023-08-26 10:27 | DI.US.S_ITS ---
LIMITED ULTRASOUND OF LEFT BREAST: 08/26/2023 CLINICAL: Patient returns today to evaluate a focal asymmetry in the left breast. Comparison is made to exams dated: 08/26/2023 mammogram, 08/08/2023 mammogram, and 12/25/2018 mammogram - [facility]. Color flow ultrasound of the left breast 9 o'clock region was performed. Elliott scale images of the real-time examination were reviewed. There is a 0.7 cm x 0.7 cm x 0.7 cm oval cyst with a septated internal wall in the left breast at 9 o'clock anterior depth 4 cm from the nipple. This oval cyst is hypoechoic with posterior acoustic enhancement. This correlates with mammography findings. IMPRESSION: PROBABLY BENIGN The 0.7 cm x 0.7 cm x 0.7 cm oval cyst in the left breast is consistent with a complicated cyst and is probably benign. A follow-up left ultrasound in 6 months is recommended to demonstrate stability. This exam was interpreted at Station ID: [id number]. Electronically Signed By: Davonte nye/caprice:08/26/2023 11:24:44 letter sent: Followup Recommended Ultrasound BI-RADS: 3 Probably benign
--- NOTE | 2023-08-26 10:27 | DI.MG.S_ITS ---
UNILATERAL LEFT DIGITAL DIAGNOSTIC MAMMOGRAM 3D/2D WITH ADDITIONAL VIEWS: 08/26/2023 CLINICAL: Additional evaluation requested from prior study. Comparison is made to exams dated: 08/08/2023 mammogram and 12/25/2018 mammogram - [facility]. The left breast is extremely dense, which lowers the sensitivity of mammography (category d />75% glandular tissue). There is a new 0.8 cm oval equal density focal asymmetry with a circumscribed margin in the left breast at 9 o'clock anterior depth. This is seen in additional views. No other significant masses or calcifications are seen in the breast. IMPRESSION: INCOMPLETE: NEEDS ADDITIONAL IMAGING EVALUATION The new 0.8 cm oval equal density focal asymmetry in the left breast is indeterminate. An ultrasound is recommended. Based on Tyrer-Cuzick model (a risk assessment model), the patient's lifetime risk is 21.3% and her 10 year risk is 6.1%. If a patient has an elevated risk, a more comprehensive evaluation should be considered and/or a referral to a genetic counselor. The [place] [employer], [place] [employer], and NCCN Guidelines advise the consideration of Breast MRI as an adjunct to screening mammography in patients whose Lifetime risk to develop breast cancer is 20% or higher. This exam was interpreted at Station ID: [id number]. NOTE: For mammograms, a report in lay terms will be sent to the patient. Approximately 15% of breast malignancies will not be visualized mammographically. In the management of a palpable breast mass, a negative mammogram must not discourage biopsy of a clinically suspicious lesion. Electronically Signed By: Davonte nye/caprice:08/26/2023 11:23:03 ACR BI-RADS Category 0: Incomplete 3340F
--- NOTE | 2023-08-26 11:06 | DI.CT.S_ITS ---
PROCEDURE: CT ABDOMEN PELVIS WO/W CON INDICATIONS: hematuria TECHNIQUE: Optional 5 mm thick noncontrast images acquired from the diaphragm to the symphysis pubis. After the administration of intravenous contrast, 5 mm thick images acquired from the diaphragm to the symphysis pubis after a 10-minute delay. 2 mm thick coronal and sagittal reformats were then performed of the kidneys and ureters. For radiation dose reduction, the following was used: automated exposure control, adjustment of mA and/or kV according to patient size. COMPARISON: None. FINDINGS: Image quality: Diagnostic. Kidneys and Ureters: Both kidneys are normal in size, without hydronephrosis or nephrolithiasis. No perinephric fat stranding. There is normal bilateral renal enhancement. Renal calyces appear normal in morphology when filled with contrast. Opacified portions of both ureters demonstrate normal caliber Bladder: Bladder wall thickness is normal. No bladder stones. OTHER: Lower chest: Dependent hazy opacity which has the appearance of atelectasis. Liver: No solid mass. Gallbladder: No radiopaque gallstones or wall thickening. Biliary ducts: No biliary dilation. Pancreas: No ductal dilation. Punctate calcification in the tail the pancreas. Spleen: Size is within normal limits. Adrenal Glands: No adrenal nodules. Stomach and Bowel: Normal colonic caliber, without significant wall thickening. Normal appendix. Diverticulosis. Peritoneum: No abnormal intraperitoneal fluid. No free air. Ventral Wall: No hernia. Abdominal Nodes: No retroperitoneal or mesenteric adenopathy by size criteria. Vessels: Aorta and inferior vena cava are normal in size. PELVIS: Pelvic Organs: Uterus is unremarkable. Pelvic Nodes: No enlarged lymph nodes. Miscellaneous: No inguinal hernias are seen. Bones: No aggressive osseous abnormality. IMPRESSION: 1. No kidney stones. No hydronephrosis. 2. No solid renal mass. 3. No upper urinary tract filling defect. Dictated by: Hollis Brown M.D. on 08/26/2023 at 15:16 Approved by: Hollis Brown M.D. on 08/26/2023 at 15:21
== END ==
PROVIDERS: PCP Family Medicine; Referring Provider Family Medicine; Visit Provider Family Medicine
DX: R92.8 Other abnormal and inconclusive findings on diagnostic imaging of breast (principal); R92.342 Mammographic extreme density, left breast; N60.02 Solitary cyst of left breast; R31.9 Hematuria, unspecified; M25.559 Pain in unspecified hip; K57.90 Diverticulosis of intestine, part unspecified, without perforation or abscess without bleeding; Z72.0 Tobacco use
CPT/HCPCS: 74178; 76642; 77065; G0279

== ENCOUNTER → 2023-09-11 08:00 | Outpatient (CLI) | payer OTHER, SELFPAY | LOC: LAB 09-15 09:43 | PROVIDERS: PCP Family Medicine; Referring Provider Surgery; Visit Provider Surgery | DX: Z53.21 Procedure and treatment not carried out due to patient leaving prior to being seen by health care provider (principal) ==

== ENCOUNTER → 2024-04-06 09:30 | Outpatient (CLI) | payer OTHER, SELFPAY ==
--- NOTE | 2024-04-06 09:31 | DI.US.S_ITS ---
LIMITED ULTRASOUND OF LEFT BREAST: 04/06/2024 CLINICAL: Patient returns today to evaluate a focal asymmetry in the left breast. Comparison is made to exams dated: 08/26/2023 ultrasound, 08/26/2023 mammogram, 08/08/2023 mammogram, 12/25/2018 ultrasound, and 12/25/2018 mammogram - [facility]. Color flow ultrasound of the left breast 9 o'clock region was performed. Elliott scale images of the real-time examination were reviewed. There is a 0.5 cm x 0.7 cm x 0.6 cm oval cystic mass with a septated internal wall in the left breast at 9 o'clock middle depth 4 cm from the nipple. This oval cyst is anechoic to minimally hypoechoic with an abrupt boundary and posterior acoustic enhancement. There are fewer septations and locules compared to prior. This abnormality is decreased in size. Color flow imaging demonstrates that there is no vascularity present. There also is incidental benign ductal dilatation and trace ductal debris in the 6:00 position amidst fibrocystic tissue in the left breast at 8 o'clock in the retroareolar region. Color flow imaging demonstrates that there is no vascularity present. Similar duct dilatation has been present previously. IMPRESSION: PROBABLY BENIGN The 0.5 cm x 0.7 cm x 0.6 cm oval cyst in the left breast at 9 o'clock has decreased in size and complexity, most likely is a complicated cyst and is probably benign. The dilated duct in the left breast at 8 o'clock in the retroareolar region is benign. A follow-up left ultrasound in 6 months is recommended to demonstrate stability. The patient will be due for bilateral mammograms at that same visit. Findings and recommendations were conveyed to the patient at time of exam. This exam was interpreted at Station ID: [id number]. Electronically Signed By: Mlainda shields/:04/06/2024 11:05:34 letter sent: Followup Recommended ACR BI-RADS Category 3: Probably Benign
== END ==
PROVIDERS: PCP Family Medicine; Referring Provider Family Medicine; Visit Provider Family Medicine
DX: R92.8 Other abnormal and inconclusive findings on diagnostic imaging of breast (principal); N60.02 Solitary cyst of left breast
CPT/HCPCS: 76642

== ENCOUNTER → 2024-10-07 08:57 | Outpatient (CLI) | payer OTHER, SELFPAY ==
--- NOTE | 2024-10-07 08:58 | DI.MG.S_ITS ---
MM diagnostic mammo BI, US breast LT limited: 10/07/2024 BI-RADS: 3 CLINICAL: 53-year old female for bilateral diagnostic mammogram and left diagnostic breast ultrasound that is a follow-up to ultrasound, left on 04/06/2024. Tyrer-Cuzick lifetime risk of 9.6%. No personal or first-degree family history of breast cancer. PRIOR EXAMS 04/06/2024, 08/26/2023, 08/08/2023, 12/25/2018. MAMMOGRAPHY TECHNIQUE: 2D and 3D (tomosynthesis) digital mammographic views obtained, with additional images as needed for full coverage. Current study was also evaluated with a Computer Aided Detection (CAD) system. ULTRASOUND TECHNIQUE TARGETED Left Breast Ultrasound: Real-time ultrasound exam was performed focused to area of clinical and/or imaging concern. Real-time lu scale and color doppler imaging of the area of clinical interest was performed with image documentation. DENSITY D. The breasts are extremely dense, which lowers the sensitivity of mammography. MAMMOGRAPHY FINDINGS Right: No suspicious mass, asymmetry, microcalcification, or other abnormality seen. Left: Inner at 9:00, Anterior depth: There is an asymmetry present that has decreased in size. ULTRASOUND FINDINGS Left: Inner at 9:00, 4.0 cm from nipple, measuring 0.3 x 0.2 x 0.2 cm: There is a simple cyst except for thin septations showing posterior acoustic enhancement that has decreased in size. Doppler shows no vascularity. Left This finding is incidental and benign. There is a dilated duct containing anechoic fluid and echogenic material. The duct has increased in size. This finding does not correlate with findings on mammogram. IMPRESSION: Right * No evidence of malignancy. Left (Simple Cyst): Inner at 9:00, 4.0 cm from nipple, measuring 0.3 x 0.2 x 0.2 cm * Probably Benign. Left * Cyst has decreased size compared to previous. Anechoic dilated duct has increased in size. RECOMMENDATIONS Left: Inner at 9:00, 4.0 cm from nipple * Followup with diagnostic ultrasound in one year. Bilateral * Annual screening mammography in one year. COMMENTS: Findings and recommendations were conveyed to the patient during today's evaluation. OVERALL ASSESSMENT CATEGORY BI-RADS-3: Probably Benign. ELECTRONICALLY SIGNED: Malinda Sandhu M.D. on 10/07/2024 at 12:37:19 PM PT Interpreting Station ID: [id number]
== END ==
PROVIDERS: PCP Family Medicine; Referring Provider Family Medicine; Visit Provider Family Medicine
DX: R92.8 Other abnormal and inconclusive findings on diagnostic imaging of breast (principal); R92.343 Mammographic extreme density, bilateral breasts; N60.02 Solitary cyst of left breast
CPT/HCPCS: 76642; 77066; G0279

== ENCOUNTER → 2024-10-08 09:17 | Outpatient (CLI) | payer OTHER, SELFPAY ==
[2024-10-08 10:51] LABS: Add Manual Diff / Slide Review NO; Basophils Absolute Auto 100 /uL (0-100); Basophils Percent Auto 1.3 % (0-2); Eosinophils Absolute Auto 100 /uL (0-450); Eosinophils Percent Auto 1.1 % (2-4); Hematocrit 41.4 % (36-46); Lymphocytes Absolute Auto 1500 /uL (1100-4500); Lymphocytes Percent Auto 27.1 % (25-40); Mean Corpuscular HGB Conc 33.7 % (30-36); Mean Corpuscular Hemoglobin 29.5 PG (26-34); Mean Corpuscular Volume 87.5 fL (80-100); Monocytes Absolute Auto 500 /uL (0-900); Monocytes Percent Auto 8.2 % (3-14); Neutrophils Absolute Auto 3500 /uL (1500-7000); Neutrophils Percent Auto 62.3 % (50-75); Platelet Count 247 X10^3/uL (150-400); Red Blood Cell Count 4.73 X10^6/uL (4.0-5.2); Red Cell Distribution Width 14.4 % (11.6-14.8); White Blood Cell Count 5.6 X10^3/uL (4.5-11.0)
[2024-10-08 11:18] LABS: Alanine Aminotransferase 27 IU/L (<35); Albumin 4.4 g/dL (3.5-5.0); Albumin Globulin Ratio 1.4 (1.0-2.8); Alkaline Phosphatase 79 U/L (38-126); Aspartate Aminotransferase 41 IU/L (14-36); BUN Creatinine Ratio 12.2 (6-22); Bilirubin Total 0.6 mg/dL (0.2-1.3); Blood Urea Nitrogen 16 mg/dL (7-17); Calcium 9.5 mg/dL (8.4-10.2); Carbon Dioxide 29 mmol/L (22-32); Chloride 105 mmol/L (98-107); Cholesterol 226 mg/dL (140-199); Estimated Glomerular Filt Rate 48 mL/min (>60); Globulin 3.2 g/dL (1.7-4.1); Glucose 94 mg/dL (70-100); HDL Cholesterol 56 mg/dL (40-60); HEMOLYSIS < 15 (0-50); LDL Cholesterol Calculated 153 mg/dL (<100); Potassium 4.5 mmol/L (3.4-5.1); Sodium 139 mmol/L (137-145); Total Protein 7.6 g/dL (6.3-8.2); Triglycerides 85 mg/dL (35-150)
[2024-10-08 11:33] LABS: Free T3, Triiodothyronine Free 3.97 pg/mL (2.77-5.27)
[2024-10-08 11:50] LABS: Thyroid Stimulating Hormone < 0.015 uIU/mL (0.47-4.68)
== END ==
PROVIDERS: PCP Family Medicine; Referring Provider Family Medicine; Visit Provider Family Medicine
DX: R59.9 Enlarged lymph nodes, unspecified (principal); R26.89 Other abnormalities of gait and mobility; E05.90 Thyrotoxicosis, unspecified without thyrotoxic crisis or storm; Z13.6 Encounter for screening for cardiovascular disorders; R53.83 Other fatigue
CPT/HCPCS: 36415; 80053; 80061; 84436; 84443; 84481; 85025; 86376; 86800

== ENCOUNTER → 2024-10-14 08:50 | Outpatient (CLI) | payer OTHER, SELFPAY ==
--- NOTE | 2024-10-14 08:51 | DI.CT.S_ITS ---
PROCEDURE: CT LUNG LOW DOSE SCREENING INDICATIONS: Smoker, history of tobacco abuse TECHNIQUE: Noncontrast 2.0-2.5 mm thick sections acquired from the pulmonary apices to the posterior costophrenic angles. 7 mm thick axial MIP, and 5 mm coronal and sagittal reformats were then acquired. For radiation dose reduction, the following was used: automated exposure control, adjustment of mA and/or kV according to patient size. COMPARISON: [facility], CT, CT ANGIO CHEST PE PROTOCOL, 04/18/2019, 17:35. FINDINGS: Image quality: Diagnostic. Lower Neck: No enlarged lymph nodes. Thyroid: No thyroid nodules which require sonographic follow up, per consensus guidelines. Axillae: No enlarged lymph nodes. Chest Wall: Unremarkable. Bones: Unremarkable. Lungs and Pleura: No pneumothorax or pleural effusions. Mild emphysematous change. Mild mostly dependent ground-glass opacity. Left lower lobe fissural pulmonary nodule measuring 0.6 cm, (3/150), unchanged compared to 2019. Heart: Heart size is normal. No pericardial effusion. Thoracic Vessels: The aorta and pulmonary arteries demonstrate normal size. Mediastinum and Kellen: No enlarged lymph nodes. Esophagus: No wall thickening. No hiatal hernia. Upper Abdomen: Visualized upper abdomen solid organs and bowel loops appear normal. IMPRESSION: Left fissure pulmonary nodule measuring 0.6 cm, unchanged since 2019. LUNG-RADS 2; continued annual screening, if eligible. Clinically Significant Non-pulmonary Findings: None. Dictated by: Hollis Brown M.D. on 10/14/2024 at 13:23 Approved by: Hollis Brown M.D. on 10/14/2024 at 13:30
--- NOTE | 2024-10-14 08:51 | DI.MRI.S_ITS ---
PROCEDURE: MR HEAD/BRAIN WO CON INDICATIONS: Vision changes, balance disorder TECHNIQUE: Noncontrast axial T1 spin echo, axial T2 fast spin echo, sagittal and axial FLAIR, coronal T2 fast spin echo, axial gradient echo, axial diffusion and ADC through the brain. COMPARISON: None. FINDINGS: Image quality: Excellent. CSF Spaces: Basal cisterns are patent. No extra-axial fluid collections. Ventricles are normal in size and shape. Brain: No intracranial masses or hemorrhage. Elliott/white matter interface is normal. Brainstem appears normal. Diffusion-weighted images demonstrate no acute infarct. No chronic ischemic insults. Normal intravascular flow voids are present. Skull and face: Calvarium has normal marrow signal. Orbits appear normal. Sinuses: Sinuses and mastoids are clear. IMPRESSION: Unremarkable MRI of the brain Approved by: Miguel Huynh M.D. on 10/14/2024 at 10:22
== END ==
PROVIDERS: PCP Family Medicine; Referring Provider Family Medicine; Visit Provider Family Medicine
DX: R91.1 Solitary pulmonary nodule (principal); H53.9 Unspecified visual disturbance; R26.89 Other abnormalities of gait and mobility; Z87.891 Personal history of nicotine dependence; Z12.2 Encounter for screening for malignant neoplasm of respiratory organs
CPT/HCPCS: 70551; 71271

== ENCOUNTER → 2024-10-15 16:38 | Outpatient (CLI) | payer OTHER, SELFPAY ==
--- NOTE | 2024-10-15 16:40 | DI.US.S_ITS ---
PROCEDURE: US SOFT TISSUE HEAD AND NECK INDICATIONS: Enlarged lymph node TECHNIQUE: Real-time scanning was performed of the neck region of interest, with image documentation. COMPARISON: [facility], , US SOFT TISSUE HEAD AND NECK, 04/07/2020, 11:35. FINDINGS: Inferior to the left ear there is a superficial lymph node measuring 1.4 x 1 x 0.8 cm. Cortex measuring 0.2 cm. A few additional small lymph nodes with normal anatomic appearance. IMPRESSION: Prominent lymph node inferior to the left ear measuring 0.8 cm short axis diameter. Recommend clinical correlation. If indicated ultrasound-guided biopsy or CT neck with IV contrast could be considered for further evaluation. Dictated by: Hollis Brown M.D. on 10/17/2024 at 15:12 Approved by: Hollis Brown M.D. on 10/17/2024 at 15:18
== END ==
PROVIDERS: PCP Family Medicine; Referring Provider Family Medicine; Visit Provider Family Medicine
DX: R59.9 Enlarged lymph nodes, unspecified (principal); R59.0 Localized enlarged lymph nodes
CPT/HCPCS: 76536

== ENCOUNTER → 2024-11-08 09:29 | Outpatient (CLI) | payer OTHER, SELFPAY ==
--- NOTE | 2024-11-08 09:32 | DI.US.S_ITS ---
PROCEDURE: US FINE NEEDLE ASPIRATION INDICATIONS: enlarged left infra-auricular lymph node TECHNIQUE: The indications, alternatives, benefits, risks, and complications of the procedure were explained to the patient. Written informed consent was obtained and placed in the chart. The area of interest was examined sonographically and a site was chosen for ultrasound guided percutaneous sampling. The skin was prepared and draped in the usual fashion, and anesthetized with 1% lidocaine infiltrated from the skin down to the lesion. Multiple passes were then performed, with contents emptied into an appropriate pathology specimen container. A bandage was applied to the area of access at completion of the study. COMPARISON: None. FINDINGS: Location(s) of lesion(s) sampled: Left infra-auricular Hardwick: 25 gauge hypodermic needles. Number of passes: 5 Medications: 1% lidocaine for local anaesthesia. Complications: None. IMPRESSION: Successful ultrasound-guided left infra auricular nodule fine needle aspiration, with cytology results pending. Dictated by: Shayan Barnhart M.D. on 11/09/2024 at 9:28 Approved by: Shayan Barnhart M.D. on 11/09/2024 at 9:30
--- NOTE | 2024-11-08 10:32 | PATH_ITS ---
Note [facility] Accession Number: [id number] TESTS RESULT FLAG UNITS REF RANGE LAB Clinician Provided Cytology Information No. of containers..01 Other (Miscellaneous) Source: LEFT NECK LYMPH NODE - INFERIOR TO EAR LOBE DIAGNOSIS: LEFT NECK LYMPH NODE - INFERIOR TO EAR LOBE NEGATIVE FOR MALIGNANT CELLS. THIS INTERPRETATION INCLUDES EVALUATION OF A CELL BLOCK. HYPOCELLULAR ASPIRATE, FAVOR PLEOMORPHIC ADENOMA. COMMENT: This case was also reviewed by Dr. Ember Peres (Julie), who agrees with the interpretation. Pathologist ICD10: D11.9, R59.9 Signed out by: Natasha Arredondo MD, Pathologist NPI- [id number] Performed by: Simon Higgins, Processing Technician ([facility]) Gross description: 01 30 CC, YELLOW, CLEAR RECIEVED: IN CYTOLYT WITH BLUE CAP CONTAINER.VO /VDU 11/09/2024 0713 Local FLAG LEGEND: L-Low Normal,H-High Normal,LL-Alert Low,HH-Alert High <-Panic Low,>-Panic High,A-Abnormal,AA-Critical Abnormal Performed at: 01 =Z PT [address] [place], [place] [address] Anthony Cabrales MD, Performed at: [address] [place], [place], [place] [id number] MD Anthony Cabrales MD Phone: [phone]
== END ==
PROVIDERS: PCP Family Medicine; Referring Provider Family Medicine; Visit Provider Family Medicine
DX: R59.9 Enlarged lymph nodes, unspecified (principal)
CPT/HCPCS: 10005

== ENCOUNTER → 2024-12-07 11:51 | Outpatient (CLI) | payer OTHER, SELFPAY ==
[2024-12-07 12:31] LABS: Appearance Urine UA CLEAR; Bilirubin Urine UA NEGATIVE (NEGATIVE); Color Urine UA YELLOW; Glucose Urine UA NEGATIVE (Negative); Ketones Urine UA NEGATIVE (NEGATIVE); Leukocyte Esterase Urine UA NEGATIVE (NEGATIVE); Nitrite Urine UA NEGATIVE (Negative); Occult Blood Urine UA NEGATIVE (Negative); Protein Urine UA NEGATIVE (Negative); Urobilinogen Urine UA 0.2 E.U./dL (0.2)
[2024-12-07 12:44] LABS: Bacteria Urine None Seen; Culture Indicated Urine Cult Not Indicated; RBC Urine None Seen (0-5/HPF); Squamous Epithelial Cell Urine 5-10 /HPF (0-5/HPF); Urine Volume 10mL (spun); WBC Urine 0-1/HPF (0-5/HPF)
[2024-12-07 12:45] LABS: Alanine Aminotransferase 29 IU/L (<35); Albumin 4.3 g/dL (3.5-5.0); Albumin Globulin Ratio 1.4 (1.0-2.8); Alkaline Phosphatase 79 U/L (38-126); Aspartate Aminotransferase 41 IU/L (14-36); BUN Creatinine Ratio 10.8 (6-22); Bilirubin Total 0.4 mg/dL (0.2-1.3); Blood Urea Nitrogen 11 mg/dL (7-17); Calcium 9.3 mg/dL (8.4-10.2); Carbon Dioxide 26 mmol/L (22-32); Chloride 107 mmol/L (98-107); Estimated Glomerular Filt Rate > 60 mL/min (>60); Globulin 3.1 g/dL (1.7-4.1); Glucose 95 mg/dL (70-99); HEMOLYSIS 16 (0-50); Potassium 4.5 mmol/L (3.4-5.1); Sodium 139 mmol/L (137-145); Total Protein 7.4 g/dL (6.3-8.2)
[2024-12-07 14:19] LABS: Creatinine Urine Random 21.88 mg/dL
[2024-12-07 14:24] LABS: Microalbumin Urine Random < 0.6 mg/dL (0-1.6)
== END ==
PROVIDERS: PCP Family Medicine; Referring Provider Family Medicine; Visit Provider Family Medicine
DX: R00.0 Tachycardia, unspecified (principal); R53.83 Other fatigue; N17.9 Acute kidney failure, unspecified
CPT/HCPCS: 36415; 80053; 81001; 82043; 82570